=== PATIENT | female | born 1995 | race Caucasian/White ===

== ENCOUNTER → 2021-12-04 | Outpatient (CLI) | payer MEDICAID, SELFPAY ==
[2021-12-11 11:42] LABS: HPV APTIMA, High Risk Negative (Negative)
== END | disposition home or self-care (01) ==
LOC: LABSPEC 13:13
PROVIDERS: Visit Provider Obstetrics & Gynecology
DX: Z12.4 Encounter for screening for malignant neoplasm of cervix (principal)
CPT/HCPCS: 87624; 88175; G0145

== ENCOUNTER → 2022-02-27 | Outpatient (CLI) | payer MEDICAID, SELFPAY | END | disposition home or self-care (01) | PROVIDERS: Visit Provider Obstetrics & Gynecology | DX: N89.8 Other specified noninflammatory disorders of vagina (principal) ==

== ENCOUNTER → 2023-03-06 | Outpatient (CLI) | payer BC, SELFPAY ==
[2023-03-06 14:31] LABS: T4 Free Direct 0.97 ng/dL (0.76-1.46); Thyroid Stim Hormone (TSH) 1.11 uIU/mL (0.358-3.74)
== END | disposition home or self-care (01) ==
LOC: PAVLAB 13:25
PROVIDERS: PCP Family Medicine; Referring Provider Registered Nurse; Visit Provider Registered Nurse
DX: N92.6 Irregular menstruation, unspecified (principal)
CPT/HCPCS: 36415; 84402; 84439; 84443

== ENCOUNTER → 2023-05-23 | Outpatient (CLI) | payer BC, SELFPAY ==
[2023-05-24 22:06] LABS: Chlamydia By Nucleic Acid AMP Negative (Negative); Gonococcus By Nucleic Acid AMP Negative (Negative)
[2023-05-28 11:56] LABS: HPV Reflexed? NOT INDICATED
== END | disposition home or self-care (01) ==
LOC: LABSPEC 12:27
PROVIDERS: PCP Family Medicine; Referring Provider Registered Nurse; Visit Provider Registered Nurse
DX: Z12.4 Encounter for screening for malignant neoplasm of cervix (principal); Z11.3 Encounter for screening for infections with a predominantly sexual mode of transmission
CPT/HCPCS: 87491; 87591; 88175; G0145

== ENCOUNTER → 2023-08-02 | Outpatient (CLI) | payer BC, SELFPAY ==
[2023-08-02 12:15] LABS: Amphetamine Urine VISTA NEGATIVE (<1000 ng/mL); Barbiturate Urine VISTA NEGATIVE (< 200 ng/mL); Benzodiazepine Urine VISTA NEGATIVE (< 200 ng/mL); Cocaine Urine VISTA NEGATIVE (< 300 ng/mL); Ecstacy Urine VISTA NEGATIVE (< 500 ng/mL); Methadone Urine VISTA NEGATIVE (< 300 ng/mL); PCP Urine VISTA NEGATIVE (< 25 ng/mL); THC Urine VISTA NEGATIVE (< 50 ng/mL); Vista UDS pH Range 7
[2023-08-06 21:06] LABS: Chlamydia By Nucleic Acid AMP Negative (Negative); Gonococcus By Nucleic Acid AMP Negative (Negative)
== END | disposition home or self-care (01) ==
LOC: LABSPEC 11:21
PROVIDERS: PCP Family Medicine; Referring Provider Advanced Practice Midwife; Visit Provider Advanced Practice Midwife
DX: Z34.90 Encounter for supervision of normal pregnancy, unspecified, unspecified trimester (principal)
CPT/HCPCS: 80307; 87086; 87491; 87591

== ENCOUNTER 2023-08-16 10:10 | Outpatient (CLI) | payer BC, SELFPAY ==
[2023-08-16 11:19] LABS: NATERA MAILED SPECIMEN
--- OUTSIDE RECORDS SUMMARY | 2023-08-16 11:24 | XMS RPT_ITS | CCD ---
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 [facility] Start: 10-05-2022 Tobacco use and exposure Smokeless tobacco non-user [facility] Start: 10-05-2022 Alcohol intake Current drinke r of alcohol (finding) [facility] Start: 10-05-2022 [facility] [employer], [email or web address] Start: 10-05-2022 Tobacco Comment occasionally a cigarette a week [facility] Start: 1995 Sex Assigned At Not on file [facility] Start: 09-25-2022 End: 10-05-2022 Exposure to SARS-CoV-2 (event) Not sure [facility] [place] [place] Tobacco Use: Tobacco Use: ; F ormer smoker. [facility], [email or web address] Tobacco Use: Tobacco Use: ; N ever smoker. Status: Inactive [employer] Ex-smoker [employer] Work Phone: Mental Status Date Assessment Result Facility 10-05-2022 Cognitive function Level Of Cons ciousness Awake;Alert;Appropriate [facility] Work Phone: Emergency department Note 10-05-2022 Adrianne Ontiveros RN - 10/05/2022 5:03 AM EST Note Date & Type Note Facility 10-05-2022 Emergency department Note Discharge instructions given to pt. Pt voices understanding and declines the need for additional information. Pt instructed to make follow up appointments and provided with information on same. Pt ambulates to ED lobby for d/c in stable condition. [facility] [place] [place] Emergency department Note 10-05-2022 Adrianne Ontiveros RN - 10/05/2022 5:03 AM Danii Montgomery RN - 10/05/2022 1:46 AM EST Note Date & Type Note Facility 10-05-2022 Emergency department Note Discharge instructions given to pt. Pt voices understanding and declines the need for additional information. Pt instructed to make follow up appointments and provided with information on same. Pt ambulates to ED lobby for d/c in stable condition. Pt arrives to ED for lower abdominal cramping onset tonight. States that she found out on Saturday that she was , unsure how far along she is, states hasn't had a period in over 2 years. States that tonight she went to [facility] and they referred her here for an US to r/o ectopic. Reports vaginal bleeding. Alert and oriented. Respers easy and unlabored. Ambulates with steady gait. Pt tearful in triage. documented in this encounter [facility] [place] [place] Hospital Discharge instructions 10-05-2022 Discharge InstructionsAttachments Note Date & Type Note Facility 10-05-2022 Hospital Discharg e instructions Gely Jarquin APRN CNP - 10/05/2022 4:40 AM EST Please obtain a beta hCG which is your biomarker in 48 hours, ordered this lab for you and please bring the copy of the order with you to our lab to have this completed. Please follow-up with the [facility]ERCIAL [facility]EDIT [facility]NA[facility]ST team for we have referred you to. If you develop worsening of your symptoms, difficulty breathing, numbness, tingling, weakness, changes in your vision or any other urgent concerns, please call 911 or return to the Emergency Department immediately. The following attachments cannot be sent through Care Everywhere.: Suspected Ectopic (Greek Gibraltarian)Miscarriage (Greek Gibraltarian)documented in this encounter [facility] [place] [place] Discharge summary 10-05-2022 Note Date & Type Note Facility [facility] Work Phone: Emergency department Triage note 10-05-2022 Danii Negron RN - 10/05/2022 1:46 AM EST Note Date & Type Note Facility 10-05-2022 Emergency department Triage note Pt arrives to ED for lower abdominal cramping onset tonight. States that she found out on Saturday that she was , unsure how far along she is, states hasn't had a period in over 2 years. States that tonight she went to [facility] and they referred her here for an US to r/o ectopic. Reports vaginal bleeding. Alert and oriented. Respers easy and unlabored. Ambulates with steady gait. Pt tearful in triage. [facility] [place] [place] Discharge summary 10-04-2022 Note Date & Type Note Facility [facility] Work Phone: Evaluation note Note Date & Type Note Facility Evaluation note No assessment information availa ble [facility] Work Phone: Evaluation note Note Date & Type Note Facility documented in this encounter [facility] [place] [place] Hospital Discharge instructions Note Date & Type Note Facility Hospital Discharge instructions Additional Instructions Transferred to [facility] by private car patient refused transfer by ambulance for ultrasound of pelvis rule out ectopic rule out miscarriage, first trimester with vaginal bleeding. Gestational age undetermined. Patient promised to report to [facility] ER immediately. Patient is reliable and understood risks and benefits well. [facility] Work Phone: Reason for referral (narrative) Consultation (Routine) - Open Note Date & Type Note Facility Referral ID Status Reason Start Date Expiration Date Visits Re quested Visits Authorized [id number] Open 10/05/2022 11/03/[address] [facility] [place] [place] Summary Purpose Family History No Known Family History Onset: 9 Status:Active Advance Directives Advance Directive Response Recorded Date/ Time Advance Directives No September 9:11pm Chief Complaint and Reason for Visit Chief Complaint SEVERE CRAMPING PREG NANT Additional Source Comments INFORMATION SOURCE (unrecogn ized section and content) DATE CREATED AUTHOR AUTHOR'S ORGANIZ ATION 06/01/2021 [facility] DATE CREATED AUTHOR AUTHOR'S ORGANIZ ATION 10/10/2022 [facility] DATE CREATED AUTHOR AUTHOR'S ORGANIZ ATION 11/10/2022 [facility] DATE CREATED AUTHOR AUTHOR'S ORGANIZ ATION 12/03/2022 [facility] Care Teams (unrecognized sec tion and content) Weight Calculator Relationship Specialty Start Date End Date Giovanna Aguirre MD [address] [place] [address] [place] [address] PCP - General 10/05/22 Goals (unrecognized section and content) Goals may be documented in a n alternate sectionGoals may be documented in an alternate section Reason for Visit (unrecogniz ed section and content) FOR RECORDS PERTAINING TO PATIENTS WHO ARE OR HAVE BEEN ENROLLED IN A CHEMICAL DEPENDENCY/SUBSTANCEABUSE PROGRAM, SOME INFORMATION MAY BE OMITTED. This clinical summary was aggregated from multiple sources. Caution should be exercised in using it in the provision of clinical care. This summary normalizes information from multiple sources, and as a consequence, information in this document may materially change the coding, format and clinical context of patient data. In addition, data may be omitted in some cases. CLINICAL DECISIONS SHOULD BE BASED ON THE PRIMARY CLINICAL RECORDS. [facility] provides no warranty or guarantee of the accuracy or completeness of information in this document.
== END 2023-08-16 23:59 | disposition home or self-care (01) ==
LOC: LAB 10:12
PROVIDERS: PCP Family Medicine; Referring Provider Advanced Practice Midwife; Visit Provider Advanced Practice Midwife
DX: Z00.00 Encounter for general adult medical examination without abnormal findings (principal)
CPT/HCPCS: 36415

== ENCOUNTER → 2023-09-23 | Outpatient (CLI) | payer BC, SELFPAY ==
[2023-09-23 10:30] LABS: Absolute Lymphocyte Count 1.72 X10^3/uL (0.83-4.51); Absolute Neutrophil Count 5.2 X10^3/uL (2.0-7.7); Basophil# 0.03 X10^3/uL; Basophil% 0.4 % (0-1); Eosinophil# 0.06 X10^3/uL; Eosinophils% 0.8 % (0-5); Hematocrit 42.3 % (37-47); Hemoglobin 14.1 g/dL (12.0-15.0); Lymphocyte # 1.72 X10^3/ul (0.83-4.51); Lymphocyte % 21.9 % (19-41); Mean Corp Hgb Conc 33.3 g/dL (32-36); Mean Corpuscular Hgb 29.1 pg (27.0-32.0); Mean Corpuscular Volume 87.4 fL (81-99); Mean Platelet Vol. 9.9 fl (6.2-12.0); Monocyte# 0.58 X10^3/uL; Monocyte% 7.4 % (0-10); NRBC Flagged by Analyzer 0 % (0-5); Neutrophil % 65.9 % (47-70); Platelet Count 232 K/mm3 (150-450); RBC Distribution Width CV 12.7 % (11.6-14.6); RBC Distribution Width SD 40.8 fl (35.1-43.9); Red Blood Count 4.84 M/mm3 (4.2-5.4); White Blood Count 7.9 K/mm3 (4.4-11.0)
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
[2023-09-23 11:36] LABS: HIV - WCH Non-Reactive (Nonreactive); Hepatitis B Surface Antigen Non-Reactive (Nonreactive); Hepatitis C Antibody Non-Reactive (Nonreactive); Rubella IgG Reactive (Nonreactive); Syphilis Antibodies Non-reactive
== END | disposition home or self-care (01) ==
PROVIDERS: Advanced Practice Midwife; Referring Provider Obstetrics & Gynecology; Visit Provider Obstetrics & Gynecology
DX: Z34.90 Encounter for supervision of normal pregnancy, unspecified, unspecified trimester (principal); Z3A.00 Weeks of gestation of pregnancy not specified
CPT/HCPCS: 36415; 85025; 86703; 86762; 86780; 86803; 86850; 86900; 86901; 87340

== ENCOUNTER → 2023-10-01 | Outpatient (CLI) | payer BC, SELFPAY ==
--- NOTE | 2023-10-01 10:12 | US_ITS ---
STUDY: SECOND AND THIRD TRIMESTER OBSTETRICAL ULTRASOUND - LIMITED REASON FOR EXAM: Female, 28 years old Cervical length LMP: June 06, 2023. PRIOR ULTRASOUND: None. TECHNIQUE: Transabdominal and Transvaginal TECHNICAL QUALITY: Adequate. FINDINGS: There is a single intrauterine fetus. The fetus is in a cephalic presentation. There is demonstrated cardiac activity with a heart rate of 145 bpm. There is a normal amniotic fluid volume. The largest amniotic fluid pocket measures 3.7 cm. The amniotic fluid index (MIKE) is within normal limits. The placenta is anterior in location and is not low lying. There are Grade 0 placental changes. The cervix measures 2.9 cm in length. BIOMETRY: Age by LMP: 16 weeks, 5 days. ELSI by LMP: March 12, 2024. US/Transvaginal w/Preg US IMPRESSION: Cervical length measures 2.9 cm. Electronically Signed: Markie Serrano MD at 13:29 EST ,
== END | disposition home or self-care (01) ==
PROVIDERS: Referring Provider Nurse Practitioner Women's Health; Visit Provider Nurse Practitioner Women's Health
DX: Z98.890 Other specified postprocedural states (principal)
CPT/HCPCS: 76817